=== PATIENT | female | born 1980 | race Caucasian/White ===

== ENCOUNTER 2019-09-25 12:58 | Emergency (ER) | payer OTHER ==
[~2019-09-25] VITALS: Ht 152.4 cm; Wt 81.8 kg
[2019-09-25] MEDS ORDERED: KETOROLAC TROMETHAMINE 60 MG/2 ML VIAL IM ONE (15:00)
[2019-09-25] MEDS ORDERED: CLOTRIMAZOLE 1% 15 GM CREAM TP ONE (15:00)
[2019-09-25 16:25] VITALS: BP 129/63
== END 2019-09-25 16:40 | disposition home or self-care (01) ==
LOC: EMS 12:58
DX: B35.3 Tinea pedis (principal); R20.2 Paresthesia of skin; I10 Essential (primary) hypertension; E78.00 Pure hypercholesterolemia, unspecified; F17.210 Nicotine dependence, cigarettes, uncomplicated; F19.90 Other psychoactive substance use, unspecified, uncomplicated; Z90.89 Acquired absence of other organs
CPT/HCPCS: 96372; 99283; 99406; J1885